=== PATIENT | female | born 1930 | race Caucasian/White ===

== ENCOUNTER 2019-11-22 19:33 | Inpatient (IN) | payer MEDICARE ==
[~2019-11-22] VITALS: Ht 162.6 cm; Wt 35.9 kg
--- NOTE | 2019-11-22 20:24 | NUR ---
PT IS PLEASANT AND SMILING, NAD, AOX1 RA ON 5150 HOLD PER [employer] [facility]: DR IDA FAGAN CALL FOR BED DONE: U RM 137A
--- NOTE | 2019-11-22 20:36 | NUR ---
PT BACK FROM CT RA NAD
--- NOTE | 2019-11-22 21:37 | NUR ---
CT SCAN REVEALED PT NOT CLEARED FOR [facility] CALL FOR BED DONE: M/S RM 311 UNDER Cailin FAGAN BELONGINGS LIST UPDATED AND CO-SIGNED
--- NOTE | 2019-11-22 21:46 | NUR ---
ADMITTED TO M/S RM 311 DX : AMS UNDER Cailin FAGAN ALL BELONGINGS W/ PT
--- NOTE | 2019-11-22 21:48 | NUR ---
HAND OFF AND SBAR GIVEN TO PAPO NELSON
--- NOTE | 2019-11-22 22:10 | NUR ---
Admitted 88 y/o female, under the care of Tiburcio WINN. Dx: Encephalopathy, r/o normal pressure hydrocephalus and UTI. Patient is A&Ox1, on 5150 hold d/t DTS and GD due on 11/25/19 at 0012. w/ 1:1 sitter at bedside. Oriented patient to her room and w/ the use of call light. Admission protocol initiated. Body assessment done. Safety measures observed. Call light in reach
[2019-11-22 22:20] VITALS: BP 127/72
[2019-11-22] MEDS ORDERED: HYDROCODONE/APAP 5-325MG TABLET PO PRN (22:30)
[2019-11-22] MEDS ORDERED: ACETAMINOPHEN 325 MG TABLET PO PRN (22:30)
[2019-11-22] MEDS ORDERED: MAGNESIUM HYDROXIDE 30 ML LIQUID UDC PO PRN (22:30)
[2019-11-22] MEDS ORDERED: Z GUARD REMEDY PASTE 57 GM TUBE TOP PRN (22:30)
[2019-11-22] MEDS ORDERED: ONDANSETRON 4 MG/2 ML VIAL IV PRN (22:30)
[2019-11-22] MEDS ORDERED: TEMAZEPAM 15 MG CAPSULE PO PRN (22:30)
[2019-11-22] MEDS: IV NS 1000 ML 1,000 ML IV PRN (23:24)
[2019-11-23 05:45] VITALS: BP 155/70
[2019-11-23] MEDS: PANTOPRAZOLE SODIUM 40 MG TABLET.DR PO SCH (06:05)
[2019-11-23 06:43] LABS: BASOPHILS % (AUTO) 0.4 % (0.0-2.0); EOSINOPHILS % (AUTO) 1.1 % (0.0-7.0); HEMATOCRIT 39.2 % (31.2-41.9); HEMOGLOBIN 12.9 g/dL (10.9-14.3); LYMPHOCYTES # (AUTO) 2.1 K/uL (20.0-40.0); LYMPHOCYTES % (AUTO) 50.2 % (20.5-51.5); MEAN CORPUSCULAR HEMOGLOBIN 31.9 uug (24.7-32.8); MEAN CORPUSCULAR HGB CONC 33 g/dL (32.3-35.6); MONOCYTES # (AUTO) 0.4 K/uL (2.0-10.0); MONOCYTES % (AUTO) 10.7 % (0.0-11.0); NEUTROPHILS # (AUTO) 1.6 K/uL (1.8-8.9); NEUTROPHILS % (AUTO) 37.6 % (38.5-71.5); PLATELET COUNT (AUTO) 141 K/uL (179-408); RED BLOOD CELL COUNT(AUTO) 4.04 MIL/uL (3.63-4.92); WHITE BLOOD COUNT (AUTO) 4.1 K/uL (3.8-11.8)
--- NOTE | 2019-11-23 06:45 | NUR ---
Patient slept well. No complaints of pain at this time. IV on R FA intact and patent w/ IVF infusing. Cont w/ 1:1 sitter for safety. All needs attended. Will endorse accordingly
[2019-11-23 06:46] LABS: *BILIRUBIN,URIN NEGATIVE (NEGATIVE); *CLARITY,URINE SLIGHTLY CLOUDY (CLEAR); *COLOR,URINE YELLOW (YELLOW); *KETONES,URINE NEGATIVE (NEGATIVE); *UROBILINOGEN,URINE 0.2 E.U./dl (NORMAL); LEUKOCYTE ESTERASE ,URINE NEGATIVE (NEGATIVE); NITRITE, URINE NEGATIVE (NEGATIVE); UGLUCOSE NEGATIVE (NEGATIVE)
[2019-11-23 06:56] LABS: BILIRUBIN,TOTAL 0.4 mg/dL (0.2-1.0); CREATININE 0.9 mg/dL (0.6-1.3); MAGNESIUM 1.9 mg/dL (1.8-2.4); PHOSPHOROUS 3.9 mg/dL (2.5-4.9); POTASSIUM 3.7 mmol/L (3.5-5.1); TOTAL PROTEIN, SERUM 6.2 g/dL (6.4-8.2)
[2019-11-23] MEDS ORDERED: TEMAZEPAM 7.5 MG CAPSULE PO PRN (07:15)
[2019-11-23 07:40] VITALS: BP 167/74
[2019-11-23 07:40] LABS: *BLOOD, URINE TRACE (NEGATIVE)
[2019-11-23 07:56] LABS: BACTERIA,URINE FEW /HPF (NONE SEEN); MUCUS,URINE FEW /LPF (0-FEW); RBC,URINE 0-3 /HPF (0-3); SQUAMOUS EPITHELIAL CELL,UR FEW /HPF (NONE SEEN)
[2019-11-23] MEDS: ENOXAPARIN SODIUM 40 MG/0.4 ML DISP.SYRIN SQ SCH (08:08)
[2019-11-23] MEDS: CEphaleXIN 250 MG CAPSULE PO SCH ×2 (08:28→20:05)
[2019-11-23] MEDS ORDERED: CEphaleXIN 500 MG CAPSULE PO SCH (09:00)
[2019-11-23 11:54] VITALS: BP 148/75
[2019-11-23 16:01] VITALS: BP 130/61
--- NOTE | 2019-11-23 19:30 | NUR ---
PATIENT ALERT AND ORIENTED X 1-2. ABLE TO SAY WHERE SHE IS AND WHO SHE IS, BUT UNABLE TO SAY WHERE SHE IS FROM OR WHERE SHE LIVES CURRENTLY. ON PO KEFLEX FOR UTI. RIGHT FOREARM 22 G INTACT AND PATENT. NO C/O PAIN OR SOB. WILL CONTINUE TO MONITOR.
[2019-11-23 20:00] VITALS: BP 151/76
[2019-11-23] MEDS: IV NS 1000 ML 1,000 ML IV PRN (22:29)
[2019-11-24 05:30] VITALS: BP 192/69
[2019-11-24] MEDS ORDERED: hydrALAZINE HCL 25 MG TABLET PO SCH (05:45)
[2019-11-24] MEDS: PANTOPRAZOLE SODIUM 40 MG TABLET.DR PO SCH (06:03)
--- NOTE | 2019-11-24 06:20 | NUR ---
Patient slept well during the night. 1:1 sitter maintained for safety. No PRN medications given. Will continue to monitor.
[2019-11-24 06:34] LABS: CREATININE 0.9 mg/dL (0.6-1.3); POTASSIUM 3.5 mmol/L (3.5-5.1)
[2019-11-24 06:36] VITALS: BP 146/62
[2019-11-24 06:44] LABS: BASOPHILS % (AUTO) 0.4 % (0.0-2.0); EOSINOPHILS # (AUTO) 0.1 K/uL (0.0-0.7); EOSINOPHILS % (AUTO) 1.8 % (0.0-7.0); HEMATOCRIT 38.1 % (31.2-41.9); HEMOGLOBIN 12.6 g/dL (10.9-14.3); LYMPHOCYTES # (AUTO) 2.1 K/uL (20.0-40.0); LYMPHOCYTES % (AUTO) 51.4 % (20.5-51.5); MEAN CORPUSCULAR HEMOGLOBIN 32.7 uug (24.7-32.8); MEAN CORPUSCULAR HGB CONC 33 g/dL (32.3-35.6); MONOCYTES # (AUTO) 0.3 K/uL (2.0-10.0); MONOCYTES % (AUTO) 7.7 % (0.0-11.0); NEUTROPHILS # (AUTO) 1.6 K/uL (1.8-8.9); NEUTROPHILS % (AUTO) 38.7 % (38.5-71.5); PLATELET COUNT (AUTO) 144 K/uL (179-408); RED BLOOD CELL COUNT(AUTO) 3.85 MIL/uL (3.63-4.92); WHITE BLOOD COUNT (AUTO) 4.2 K/uL (3.8-11.8)
[2019-11-24 07:52] VITALS: BP 131/56
[2019-11-24] MEDS: CEphaleXIN 250 MG CAPSULE PO SCH ×2 (08:07→20:35)
[2019-11-24] MEDS: ENOXAPARIN SODIUM 40 MG/0.4 ML DISP.SYRIN SQ SCH (08:08)
[2019-11-24 10:59] VITALS: BP 116/55
[2019-11-24 16:23] VITALS: BP 105/72
[2019-11-24] MEDS: IV NS 1000 ML 1,000 ML IV PRN (17:49)
--- NOTE | 2019-11-24 20:00 | NUR ---
RECEIVED PATIENT AWAKE IN BED. A/O X1-2. VERY PLEASANT WHEN APPROACHED. VSS. SITTER AT BEDSIDE. VS WNL. IVF INFUSING WELL TO RIGHT FA. PATIENT DENIES ANY PAIN OR DISCOMFORT. BED ALARM ON. CALL LIGHT IN REACH. ALL NEEDS ATTENDED. WILL CONTINUE TO MONITOR AND ASSESS.
[2019-11-24 20:30] VITALS: BP 147/78
[2019-11-24] MEDS: QUETIAPINE FUMARATE 25 MG TABLET PO SCH (20:35)
--- NOTE | 2019-11-25 05:50 | NUR ---
BP ELEVATED 183/75. ALL OTHER VSS. CALLED OUT TO SHELLEY VOSS FOR FURTHER ORDERS.
--- NOTE | 2019-11-25 06:05 | NUR ---
CALLED OUT TO [facility] FOR FURTHER ORDERS. WAITING CW OPERATOR BACK.
[2019-11-25] MEDS: PANTOPRAZOLE SODIUM 40 MG TABLET.DR PO SCH (06:15)
[2019-11-25 06:36] VITALS: BP 183/75
--- NOTE | 2019-11-25 06:47 | NUR ---
3RD TIME CALLING SHELLEY ACEVEDO-TATUM FOR ELEVATED BP. CARDIAC CATHETERIZATION TECHNOLOGIST NOTIFIED. PATIENT ASLEEP IN BED. SYMPTOMATIC. WILL CONTINUE TO MONITOR AND ASSESS.
[2019-11-25 07:12] VITALS: BP 172/79
[2019-11-25] MEDS ORDERED: CLONIDINE HCL 0.1 MG TABLET PO PRN (07:15)
[2019-11-25] MEDS ORDERED: CLONIDINE HCL 0.2 MG TABLET PO ONE (07:15)
--- NOTE | 2019-11-25 07:30 | NUR ---
RECEIVED PATIENT SLEEPING IN BED. A/O X1-2. VERY PLEASANT WHEN APPROACHED. SITTER AT BEDSIDE. . IVF INFUSING WELL TO RIGHT FA. PATIENT DENIES ANY PAIN OR DISCOMFORT. BED ALARM ON. ALL NEEDS ATTENDED. WILL CONTINUE TO MONITOR AND ASSESS.
[2019-11-25 07:49] LABS: BASOPHILS % (AUTO) 0.2 % (0.0-2.0); EOSINOPHILS # (AUTO) 0.1 K/uL (0.0-0.7); EOSINOPHILS % (AUTO) 1.3 % (0.0-7.0); HEMATOCRIT 41.8 % (31.2-41.9); HEMOGLOBIN 13.6 g/dL (10.9-14.3); LYMPHOCYTES # (AUTO) 1.7 K/uL (20.0-40.0); LYMPHOCYTES % (AUTO) 36.8 % (20.5-51.5); MEAN CORPUSCULAR HEMOGLOBIN 32.3 uug (24.7-32.8); MEAN CORPUSCULAR HGB CONC 33 g/dL (32.3-35.6); MEAN CORPUSCULAR VOLUME 99.4 fL (75.5-95.3); MONOCYTES # (AUTO) 0.3 K/uL (2.0-10.0); MONOCYTES % (AUTO) 7.5 % (0.0-11.0); NEUTROPHILS # (AUTO) 2.5 K/uL (1.8-8.9); NEUTROPHILS % (AUTO) 54.2 % (38.5-71.5); PLATELET COUNT (AUTO) 160 K/uL (179-408); WHITE BLOOD COUNT (AUTO) 4.6 K/uL (3.8-11.8)
[2019-11-25 07:58] LABS: CREATININE 0.8 mg/dL (0.6-1.3); POTASSIUM 3.4 mmol/L (3.5-5.1)
[2019-11-25] MEDS: CEphaleXIN 250 MG CAPSULE PO SCH ×2 (08:20→20:54)
[2019-11-25] MEDS: ENOXAPARIN SODIUM 40 MG/0.4 ML DISP.SYRIN SQ SCH (08:25)
[2019-11-25] MEDS ORDERED: POTASSIUM CHLORIDE 20 MEQ TAB.PRT.SR PO ONE (08:30)
[2019-11-25] MEDS: IV NS 1000 ML 1,000 ML IV PRN (14:42)
[2019-11-25 15:12] VITALS: BP 103/44
--- NOTE | 2019-11-25 20:00 | NUR ---
ASLEEP,SITTER AT BEDSIDE ,DOESNT WANT TO TALK , TOOK MEDICINE WITHOUT ANY PROBLEM.SLEPT AT INTERVALS.
[2019-11-25] MEDS: QUETIAPINE FUMARATE 25 MG TABLET PO SCH (20:54)
[2019-11-25 21:00] VITALS: BP 115/50
[2019-11-26 06:13] VITALS: BP 152/62
[2019-11-26] MEDS: PANTOPRAZOLE SODIUM 40 MG TABLET.DR PO SCH (06:51)
[2019-11-26] MEDS: CEphaleXIN 250 MG CAPSULE PO SCH (08:00)
[2019-11-26] MEDS ORDERED: ENOXAPARIN SODIUM 30 MG/0.3 ML DISP.SYRIN SUBCUT SCH (09:00)
[2019-11-26] MEDS ORDERED: CLON0.1T14 PO (10:39)
[2019-11-26] MEDS ORDERED: CEPH250C PO (10:39)
--- NOTE | 2019-11-26 11:22 | NUR ---
dc orders recdeived noted and carried out,dc heplock per md orders,dc instruction given to the pt ,dc pt to mhu via wheel chair in stable condition
== END 2019-11-26 11:35 | DRG 56 ==
LOC: ER 19:36 → MEDSURG3 21:53
PROVIDERS: ADMIT Nurse Practitioner Acute Care; ATTEND Nurse Practitioner Acute Care
DX: G91.2 (Idiopathic) normal pressure hydrocephalus (principal); G92 Toxic encephalopathy; N39.0 Urinary tract infection, site not specified; E44.0 Moderate protein-calorie malnutrition; D68.59 Other primary thrombophilia; G30.9 Alzheimer's disease, unspecified; F02.80 Dementia in other diseases classified elsewhere, unspecified severity, without behavioral disturbance, psychotic disturbance, mood disturbance, and anxiety; M62.84 Sarcopenia; Z74.09 Other reduced mobility; I10 Essential (primary) hypertension
CPT/HCPCS: 36415; 70450; 71045; 83550; 83735; 84100; 84443; 85025; 87086; 93005; A4663; G0378; J1650; J7030